=== PATIENT | female | born 1975 | race African-American/Black ===

== ENCOUNTER 2020-04-15 09:29 | Emergency (ER) | payer SELFPAY ==
--- NOTE | ~2020-04-15 | US_ITS ---
US pelvic complete w TV DATE: 04/15/2020 15:29 INDICATION: Right lower abdominal and pelvic pain TECHNIQUE: Real time imaging via transabdominal and transvaginal approaches COMPARISON: None FINDINGS: The uterus measures approximately 6.8 cm height and up to 3.7 cm AP dimension. The central endometrial echo complex measures 6 mm AP dimension. There is an approximately 1.5 x 2.2 cm right ovarian cyst. The ovaries are otherwise unremarkable. Normal vascular flow to both ovaries. No pelvic mass is noted . No abnormal pelvic free fluid collection. IMPRESSION: 1.5 x 2.2 cm right ovarian cyst Reviewed, dictated and finalized at [facility]. Reviewed, dictated and finalized at [facility].
--- NOTE | ~2020-04-15 | CT_ITS ---
EXAMINATION: CT abdomen pelvis w con DATE: 04/15/2020 11:07 INDICATION: Lower abdominal pain, nausea and vomiting TECHNIQUE: Computed tomography (CT) of the abdomen and pelvis was performed with 100 mL Omnipaque-350 intravenous contrast. Automated exposure control and iterative reconstruction technique were employe d. The dose-length product was 380.23 mGy-cm. COMPARISON: 11/03/2019 FINDINGS: Minimal bibasilar atelectasis. Heart size is normal. No pericardial or pleural effusion. Small slidin g-type hiatal hernia. 1 cm hepatic cyst. Focal hepatic steatosis at the ligamentum teres. Gallbladder , spleen, pancreas, left kidney and bilateral adrenal glands are normal. Mild to moderate right renal atrophy small regions of cortical scarring likely sequela of prior infection or infarction. There ar e also several fluid attenuation right renal cysts the largest measuring 2.7 cm. Bowels including the appendix are normal. There is subtle haziness to the fat along the dome of the bladder which could b e seen with cystitis. Unchanged small 6 mm enhancing myometrial focus at the left side of the uterine body consistent with small fibroid. 1.9 cm right adnexal cyst. Left adnexa is unremarkable. Small am ount of likely physiologic free fluid in the cul-de-sac. No abscess or free intraperitoneal gas.. No pathologically enlarged abdominal or pelvic lymphadenopathy. IMPRESSION: 1. Subtle haziness to the fat surrounding the bladder which could be seen with cystitis. Correlate wi urinalysis. 2. Unchanged subcentimeter likely uterine fibroid at the left side of the uterine body. Reviewed, dictated and finalized at location [facility]. IMPRESSION: 1. Subtle haziness to the fat surrounding the bladder which could be seen with cystitis. Correlate with urinalysis. 2. Unchanged subcentimeter likely uterine fibroid at the left side of the uteri ne body.
[2020-04-15 09:39] VITALS: BP 131/81; PULSE 56; RESP 16; TEMP 36.4; O2SAT 98
[2020-04-15 10:09] LABS: Basophils Percent Auto 0.2 % (0.2-1.2); Eosinophils Percent Auto 0.1 % (0-4.4); Hematocrit 33.4 % (37.0-47.0); Hemoglobin 10.1 g/dL (12.0-15.0); Immature Granulocyte Absolute 0.02 K/mm3 (0.00-0.031); Immature Granulocyte Percent A 0.2 % (0-0.5); Lymphocytes Absolute Auto 0.98 K/mm3 (0.9-3.2); Lymphocytes Percent Auto 11.3 % (18.3-44.2); Mean Corpuscular HGB Conc 30.2 g/dl (32-36); Mean Corpuscular Hemoglobin 24.4 pg (26-34); Mean Corpuscular Volume 80.7 fl (80-100); Mean Platelet Volume 11.6 fl (7.4-10.4); Monocytes Absolute Auto 0.2 K/mm3 (0.1-0.6); Monocytes Percent Auto 2.1 % (2.6-8.5); Neutrophils Absolute Auto 7.4 K/mm3 (1.3-6.7); Neutrophils Percent Auto 86.1 % (45.5-73.1); Platelet Count Result 250 k/mm3 (150-375); Red Blood Count 4.14 M/mm3 (4.2-5.4); Red Cell Distribution Width 18.7 % (11.5-14.5); White Blood Count 8.6 K/mm3 (4.5-10.0)
[2020-04-15 10:22] LABS: Potassium 3.8 mmol/L (3.4-5.0)
--- NOTE | 2020-04-15 10:28 | ED.NAVMDI ---
HPI - Nausea/Vomiting/Diarrhea General Chief complaint: Nausea/Vomiting/Diarrhea Stated complaint: Vomiting Time Seen by Provider: 04/15/20 10:13 Source: patient Mode of arrival: ambulatory Limitations: no limitations History of Present Illness HPI Narrative: This is a 44 year old female that presents to the ER for abdominal pain since this morning. Reports crampy, lower abdominal pain. Reports diarrhea. Reports she saw blood in stool. Also reports nausea and vomiting. Reports history of celiac disease. Sees a GI doctor, but has not seen him in some time. Reports a heavy menstrual cycle that started last week. Denies fever, dysuria, or hematuria. Related Data Home Medications Medication Instructions Recorded Confirmed cetirizine [Zyrtec] 10 mg PO DAILY 04/15/20 omeprazole 20 mg PO DAILY 04/15/20 Allergies Allergy/AdvReac Type Severity Reaction Status Date / Time latex Allergy Hives Verified 04/15/20 09:43 Review of Systems Review of Systems: Narrative: CONSTITUTIONAL: Denies fever GASTROINTESTINAL: Reports abdominal pain, nausea, vomiting, and diarrhea. GENITOURINARY: Denies dysuria or hematuria. All systems reviewed & are unremarkable except as noted in HPI and below PMFSH Past Medical History Medical History (Updated 04/15/20 @ 16:10 by Shahla Patel PA-C) Celiac disease H. pylori infection Surgical History Surgical History (Updated 04/15/20 @ 10:34 by Shahla Patel PA-C) History of section Social History Social History (Updated 11/03/19 @ 13:45 by Hilda Garduno) Smoking status: Never smoker Exam Narrative: Exam Narrative: GENERAL: Well-appearing, well-nourished, and in mild acute distress due to pain. HEAD: Normocephalic, atraumatic. EYES: EOMI. CHEST: Clear to auscultation. No respiratory distress. No wheezes rales or rhonchi HEART: Regular rate and rhythm. No murmur heard. Normal peripheral pulses. ABDOMEN: Soft, nondistended, normal active bowel sounds. Tender to palpation throughout the lower abdomen, without guarding EXTREMITIES: Normal range of motion. No edema. SKIN: Warm, dry, no rash. NEURO: No focal deficits. Alert and oriented x3. PSYCH: Normal mood and affect RECTAL: Hemoccult negative. External hemorrhoid present, nonthrombosed Course Vital Signs Vital signs: Vital Signs Temperature 97.6 F 04/15/20 09:39 Pulse Rate 56 L 04/15/20 09:39 Respiratory Rate 16 04/15/20 09:39 Blood Pressure 131/81 04/15/20 09:39 Pulse Oximetry 98 04/15/20 09:39 Temperature 97.6 F 04/15/20 09:39 Pulse Rate 83 04/15/20 14:01 Respiratory Rate 16 04/15/20 09:39 Blood Pressure 116/88 04/15/20 14:01 Pulse Oximetry 98 04/15/20 09:39 MDM - Nausea/Vomiting/Diarrhea MDM Narrative Medical decision making narrative: Patient presents the emergency department for abdominal discomfort, nausea and vomiting. Also reported some diarrhea and blood in stool. Patient has history of celiac disease. She did have a external hemorrhoid. She is afebrile and nontoxic-appearing. CBC is without leukocytosis. Shows normocytic anemia with hemoglobin of 10.1. Metabolic panel without concerning findings. Lipase is not elevated. UA without evidence of infection. Lactic acid is not elevated. CT scan of the abdomen and pelvis shows subtle haziness of the fat surrounding the bladder which could be cystitis. Correlate with UA. UA was not concerning for infection. Patient also has a uterine fibroid. Pelvic ultrasound shows a 1.5 x 2.2 cm right ovarian cyst. Normal vascular flow to the ovaries. Patient reports relief with pain medication and antiemetic. Patient is stable and felt appropriate for further outpatient evaluation. She was given warnings to return to the ER Lab Data Attestation: I reviewed the patient's lab results. Result diagrams: 04/15/20 09:50 04/15/20 09:50 Labs: Lab Results 04/15/20 04/15/20 04/15/20 Ran
[2020-04-15 10:40] LABS: Alanine Aminotransferase 28 U/L (4-35); Albumin Level 4.4 g/dL (3.5-5.1); Alkaline Phosphatase 126 U/L (38-126); Aspartate Amino Transferase 36 U/L (14-36); Bilirubin,Total 0.2 mg/dL (0.2-1.3); Blood Urea Nitrogen 6 mg/dL (7-17); Carbon Dioxide 24 mmol/L (22-30); Chloride 104 mmol/L (98-107); Estimated Glomerular Filt Rate > 60; Glucose 132 mg/dL (65-105); Lipase 48 U/L (23-300); Sodium 136 mmol/L (137-145)
[2020-04-15] MEDS: MORPHINE SULFATE 4 MG/ML INJ IV PUSH (10:40)
[2020-04-15] MEDS: SODIUM CHLORIDE 0.9% IV 1,000 ML 999 ML IV CONT (10:40)
[2020-04-15] MEDS: ONDANSETRON INJ 4 MG/2 ML VIAL IV PUSH (10:40)
[2020-04-15 10:41] LABS: Add Urine Microscopic? YES; Appearance Urine Clear (Clear); Bacteria Urine Trace /hpf; Bilirubin Urine Negative (Negative); Blood Urine Negative (Negative); Color Urine Straw (Yellow); Glucose Urine UA Negative (Negative); Ketones Urine Trace mg/dL (Negative); Leukocyte Esterase Ur Negative LEU/UL (Negative); Mucus Urine Rare /lpf; Nitrate Urine Negative (Negative); Protein Urine 1+ mg/dL (Negative); Specific Grav Ur 1.015 (1.001-1.035); Squamous Epithelial Cell Urine Few /hpf (Few); Urobilinogen Urine Negative mg/dL (<2.0); WBC Urine 0-3 /hpf
[2020-04-15 11:59] LABS: Lactic Acid Reflex 1.3 mmol/L (0.7-2.1)
[2020-04-15 13:57] VITALS: BP 98/68; PULSE 67
[2020-04-15 13:59] VITALS: BP 104/78; PULSE 75
[2020-04-15 14:01] VITALS: BP 116/88; PULSE 83
[2020-04-15 16:27] VITALS: BP 108/74; PULSE 62; RESP 16
== END 2020-04-15 16:27 | disposition home or self-care (01) ==
PROVIDERS: Physician Assistant; Emergency Provider Emergency Medicine; PCP Family Medicine
DX: N83.201 Unspecified ovarian cyst, right side (principal); K90.0 Celiac disease; R93.41 Abnormal radiologic findings on diagnostic imaging of renal pelvis, ureter, or bladder; R93.89 Abnormal findings on diagnostic imaging of other specified body structures
CPT/HCPCS: 36415; 74177; 76830; 76856; 80053; 81001; 81025; 83605; 83690; 85025; 96361; 96374; 96375; 99284; J0131; J2270; J2405; J7030; Q9967

== ENCOUNTER 2020-09-09 02:19 | Emergency (ER) | payer OTHER, SELFPAY ==
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
[2020-09-09 02:24] VITALS: BP 117/83; PULSE 90; RESP 16; TEMP 36.7; O2SAT 99
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
[2020-09-09 04:47] VITALS: BP 114/82; PULSE 77; RESP 18; O2SAT 100
== END 2020-09-09 04:48 | disposition home or self-care (01) ==
PROVIDERS: Emergency Provider Emergency Medicine; PCP Family Medicine
DX: S16.1XXA Strain of muscle, fascia and tendon at neck level, initial encounter (principal); S29.012A Strain of muscle and tendon of back wall of thorax, initial encounter; T14.8XXA Other injury of unspecified body region, initial encounter; K90.0 Celiac disease; V49.40XA Driver injured in collision with unspecified motor vehicles in traffic accident, initial encounter; M50.30 Other cervical disc degeneration, unspecified cervical region
CPT/HCPCS: 72040; 72070; 73502; 99284

== ENCOUNTER 2021-02-09 12:28 | Inpatient (IN) | payer OTHER, SELFPAY ==
--- NOTE | ~2021-02-09 | CT_ITS ---
EXAMINATION: CT abdomen pelvis w con DATE: 02/09/2021 15:52 INDICATION: Generalized abdominal pain. Nausea, vomiting and diarrhea. TECHNIQUE: Computed tomography (CT) of the abdomen and pelvis was performed with 100 mL Omnipaque-350 intravenous contrast. Automated exposure control and iterative reconstruction technique were employe d. The dose-length product was 258.67 mGy-cm. COMPARISON: 04/15/2020 FINDINGS: Lung bases are clear. Heart size is normal. No pericardial or pleural effusion. 10 mm hepatic cyst. F ocal hepatic steatosis along the ligamentum teres. Gallbladder, spleen, pancreas and bilateral adrena l glands are normal. Asymmetric mild right renal atrophy with regions of chronic cortical scarring at the upper pole. There are several right renal cysts, the largest measuring 3.0 cm. There is diffuse edematous wall thickening of the colon consistent with colitis. Appendix is normal. There is a small bowel intussusception extending for approximately 2.5 cm along a segment of ileum in the right abdome n. This is likely transient with no bowel obstruction. No evident lead mass. There is diffuse wall th ickening of the bladder. Anteverted uterus and bilateral adnexa are unremarkable. Minimal free fluid in the pelvis which could be reactive or physiologic. No pathologically enlarged abdominal or pelvic lymphadenopathy. Mild thoracic spondylosis. IMPRESSION: 1. Pancolitis most likely infectious or inflammatory in etiology. 2. Likely transient short segment of small bowel intussusception in the right abdomen with no evident lead mass or obstruction. 3. Diffuse mild bladder wall thickening which could be due to incomplete distention or cystitis eithe r acute or chronic. Correlate with urinalysis. Reviewed, dictated and finalized at location A. IMPRESSION: 1. Pancolitis most likely infectious or inflammatory in etiology. 2. Likely transient short segment of small bowel intussusception in the right a bdomen with no evident lead mass or obstruction. 3. Diffuse mild bladder wall thickening which could be due to incomplete disten tion or cystitis either acute or chronic. Correlate with urinalysis.
[2021-02-09 12:45] VITALS: BP 167/102; PULSE 54; RESP 20; TEMP 36.3; O2SAT 100
[2021-02-09 13:11] LABS: Basophils Percent Auto 0.2 % (0.2-1.2); Eosinophils Percent Auto 0.1 % (0-4.4); Hematocrit 36.6 % (37.0-47.0); Hemoglobin 11.3 g/dL (12.0-15.0); Immature Granulocyte Absolute 0.03 K/mm3 (0.00-0.031); Immature Granulocyte Percent A 0.3 % (0-0.5); Lymphocytes Absolute Auto 0.77 K/mm3 (0.9-3.2); Lymphocytes Percent Auto 7.3 % (18.3-44.2); Mean Corpuscular HGB Conc 30.9 g/dl (32-36); Mean Corpuscular Hemoglobin 26.1 pg (26-34); Mean Corpuscular Volume 84.5 fl (80-100); Mean Platelet Volume 12.5 fl (7.4-10.4); Monocytes Absolute Auto 0.2 K/mm3 (0.1-0.6); Monocytes Percent Auto 2.2 % (2.6-8.5); Neutrophils Absolute Auto 9.4 K/mm3 (1.3-6.7); Neutrophils Percent Auto 89.9 % (45.5-73.1); Platelet Count Result 197 k/mm3 (150-375); Red Blood Count 4.33 M/mm3 (4.2-5.4); Red Cell Distribution Width 16.6 % (11.5-14.5); White Blood Count 10.5 K/mm3 (4.5-10.0)
[2021-02-09 13:23] LABS: Alanine Aminotransferase 36 U/L (4-35); Albumin Level 4.5 g/dL (3.5-5.1); Alkaline Phosphatase 114 U/L (38-126); Anion Gap 6 mmol/L (8-16); Aspartate Amino Transferase 48 U/L (14-36); Bilirubin,Total 0.4 mg/dL (0.2-1.3); Blood Urea Nitrogen 6 mg/dL (7-17); Carbon Dioxide 24 mmol/L (22-30); Chloride 108 mmol/L (98-107); Estimated CRCL calculation 98 ml/min; Estimated Glomerular Filt Rate > 60; Glucose 121 mg/dL (65-105); Lipase 32 U/L (23-300); Potassium 4.3 mmol/L (3.4-5.0); Sodium 138 mmol/L (137-145)
--- NOTE | 2021-02-09 13:48 | PC.NURSE ---
Pt refusing to give urine sample at this time
--- NOTE | 2021-02-09 14:11 | ED.GENADULT ---
HPI - General Adult General Chief complaint: Nausea/Vomiting/Diarrhea Stated complaint: weakness, n/v Time Seen by Provider: 02/09/21 13:37 Source: patient, EMS and RN notes reviewed Limitations: no limitations History of Present Illness HPI narrative: Patient is 45 years old -[place] Citizen female came to the emergency room from home with generalized weakness and nausea started 2 hours prior to arrival to the emergency room. Patient denies any fever, chills, abdominal pain, back pain, chest pain, shortness of breath, headache. Patient reports a lot of stress lately. History of depression and anemia. Patient smokes, drinks occasionally and uses marijuana occasionally. Currently her main complaint is nausea Related Data Home Medications Medication Instructions Recorded Confirmed omeprazole 20 mg PO DAILY 04/15/20 metronidazole 500 mg PO DAILY 09/09/20 mirtazapine 30 mg PO DAILY 09/09/20 Allergies Allergy/AdvReac Type Severity Reaction Status Date / Time latex Allergy Hives Verified 02/09/21 15:39 Review of Systems Review of Systems: Narrative: CONSTITUTIONAL: Denies fever, chills, or sweats. EYES: Denies visual changes, redness, or discharge. ENT: Denies rhinorrhea, congestion, sore throat, or otalgia. CARDIOVASCULAR: Denies chest pain, palpitations, or edema. RESPIRATORY: Denies cough or dyspnea. GASTROINTESTINAL: Denies abdominal pain, nausea, vomiting, or diarrhea. GENITOURINARY: Denies dysuria or hematuria. SKIN: Denies rash or itching. MUSCULOSKELETAL: Denies back pain, joint pain, or myalgia. NEUROLOGIC: Denies headache, numbness, or weakness. PSYCHIATRIC: Denies anxiety or depression. PMFSH Past Medical History Medical History Celiac disease H. pylori infection Surgical History Surgical History History of section Social History Social History Smoking status: Never smoker Gender identity (if verbalized by the patient): Female Exam Narrative: Exam Narrative: General appearance: Well-developed, well-nourished Skin: Normal color Head: Normocephalic, nontraumatic Eyes: Clear conjunctiva ENT: Oropharynx normal, ears normal, nose normal Neck: Supple, nontender Chest and respiratory: Airway patent, no respiratory distress, no accessory muscle use Heart: Regular rate/rhythm Abdomen: Soft, nontender, no organomegaly, quiet bowel sounds Vascular: Normal peripheral pulses, normal capillary refill. 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 PAGE Date: 02/09/21 Time: 18:21 Vital Signs Vital signs: Vital Signs Temperature 36.3 C L 02/09/21 12:45 Pulse Rate 54 L 02/09/21 12:45 Respiratory Rate 20 02/09/21 12:45 Blood Pressure 167/102 H 02/09/21 12:45 Pulse Oximetry 100 02/09/21 12:45 Temperature 36.3 C L 02/09/21 12:45 Pulse Rate 61 02/09/21 15:32 Respiratory Rate 20 02/09/21 12:45 Blood Pressure 155/90 H 02/09/21 15:32 Pulse Oximetry 100 02/09/21 15:32 Medical Decision Making [facility] Narrative Medical decision making narrative: Anxiety-like symptoms is my concern. Labs, CT abdomen pelvis, IV fluid, IV Reglan and Benadryl ordered. Further plan to follow Differential D
--- NOTE | 2021-02-09 14:45 | PC.NURSE ---
Pt still refusing to give urine sample at this time
[2021-02-09] MEDS: diphenhydrAMINE HCl INJ 50 MG/ML VIAL IV PUSH (14:47)
[2021-02-09] MEDS: SODIUM CHLORIDE 0.9% IV 1,000 ML 999 ML IV CONT (14:47)
[2021-02-09] MEDS: METOCLOPRAMIDE HCL INJ 10 MG/2 ML VIAL IV PUSH (14:47)
[2021-02-09 15:32] VITALS: BP 155/90; PULSE 61; O2SAT 100
[2021-02-09 15:38] LABS: Add Urine Microscopic? YES; Appearance Urine Clear (Clear); Bacteria Urine Trace /hpf; Bilirubin Urine Negative (Negative); Blood Urine Negative (Negative); Color Urine Yellow (Yellow); Glucose Urine UA Negative (Negative); Ketones Urine Trace mg/dL (Negative); Leukocyte Esterase Ur Negative LEU/UL (Negative); Mucus Urine Rare /lpf; Nitrate Urine Negative (Negative); Protein Urine 1+ mg/dL (Negative); RBC Urine 0-2 /hpf (0-2); Specific Grav Ur 1.017 (1.001-1.035); Squamous Epithelial Cell Urine Rare /hpf (Few); Urobilinogen Urine Negative mg/dL (<2.0); WBC Urine 0-3 /hpf
[2021-02-09] MEDS: LORazepam INJ (*CRX) 2 MG/ML VIAL 1 MG IV PUSH (16:02)
[2021-02-09 17:41] VITALS: BP 133/87; PULSE 61; RESP 18; O2SAT 100
[2021-02-09] MEDS: metroNIDAZOLE 500 MG/ISO 100ML 500 MG/100 ML BAG 100 MG IVPB (17:41)
[2021-02-09 18:45] VITALS: BP 132/77; PULSE 70; RESP 16; TEMP 36.4; O2SAT 100
[2021-02-09 18:49] VITALS: BMI 21.6
[2021-02-09] MEDS: SODIUM CHLORIDE 0.9% IV 1,000 ML 125 ML IV CONT (20:43)
--- NOTE | 2021-02-09 21:45 | PM.IMHP ---
H&P: HPI History of Present Illness Date/Time: 02/09/21 21:45 Chief Complaint: Nausea, vomiting, diarrhea. Narrative: This is a pleasant 45-year-old female with celiac disease and GERD who presented to the emergency department earlier today via EMS from home for evaluation of nausea, vomiting, and diarrhea that started several hours prior to arrival. Her symptoms started suddenly and she has had numerous episodes of emesis and proximally for loose stools since the onset. Additionally she has had some mild abdominal bloating with belching and flatus. CT of the abdomen and pelvis showed pancolitis and likely transient short segment of small bowel intussusception in the right abdomen. She is feeling much better after receiving antiemetics and IV fluids and has no specific complaints at this time. She denies fever, chills, sweats, hematemesis, melena, hematochezia, and current abdominal pain. No dysuria, urinary hesitancy, urgency, or frequency. She states compliance with her celiac diet and has not had any recent antibiotics. She also denies recent travel and sick contacts. No personal or family history of inflammatory bowel disease. Review of Systems Review of Systems: Narrative: Twelve systems were reviewed with pertinent positives and negatives as per HPI. Weight has remained stable. She has a history of endoscopy but has never had a colonoscopy. Rare indigestion. Except as documented, all other systems were reviewed and are negative. [facility] Past Medical History Medical History (Updated 02/10/21 @ 00:35 by Yolanda Espinal PA-C) Anemia Asthma Celiac disease Depression with anxiety Gastroesophageal reflux disease H. pylori infection Nicotine use Surgical History Surgical History (Updated 02/10/21 @ 00:32 by Yolanda Espinal PA-C) History of section X3 Family History Family History Father Heart disease Mother Heart disease Diabetes mellitus Hyperlipemia Hypertension Social History Social History (Updated 02/10/21 @ 00:33 by Yolanda Espinal PA-C) Social History: Surrogate decision maker: Kamaljit Terence (friend) and Germán Hanson (daughter). Code status: Full code. Smoking status: Current some day smoker Tobacco type: cigars Alcohol intake: current Drinks per week: 1 Substance use: current Substance use type: marijuana Last use: 02/08/2021 Additional living arrangements comments: Resides in [place] with a friend. Additional occupation/education comments: Not currently employed. Gender identity (if verbalized by the patient): Female Spiritual care concerns: No Meds Home Medications and Allergies Home Medications Medication Instructions Recorded Confirmed Type omeprazole 20 mg PO DAILY 04/15/20 02/09/21 History ibuprofen 800 mg PO TID PRN #21 tablet 09/09/20 02/09/21 Rx mirtazapine 45 mg PO DAILY 09/09/20 02/09/21 History albuterol sulfate [Ventolin HFA] 2 puff INHALATION QID PRN 02/09/21 02/09/21 History ferrous sulfate 325 mg PO BID 02/09/21 02/09/21 History Allergies Allergy/AdvReac Type Severity Reaction Status Date / Time latex Allergy Hives Verified 02/09/21 15:39 Vital Signs Vital Signs - 24 hr 02/09/21 12:45 02/09/21 15:32 02/09/21 17:41 Temperature 97.3 F L Pulse Rate 54 L 61 61 Respiratory Rate 20 18 Blood Pressure 167/102 H 155/90 H 133/87 Pulse Oximetry 100 100 100 02/09/21 18:45 02/09/21 22:00 Temperature 97.6 F 97 F L Pulse Rate 70 88 Respiratory Rate 16 18 Blood Pressure 132/77 113/70 Pulse Oximetry 100 100 Exam Narrative: Exam Narrative: General: Well-developed female supine in bed in no distress. Weight: 62.7 kilograms. BMI: 21.6. HEENT: Normocephalic, atraumatic. PERRL, EOMI. Sclerae anicteric. Oral mucosa moist. Neck: Supple. Respiratory: Lungs are clear to auscultation bilaterally. Cardiovascular: Regular rate and rhy
[2021-02-09 22:00] VITALS: BP 113/70; PULSE 88; RESP 18; TEMP 36.1; O2SAT 100
[2021-02-10] VITALS (7 sets, daily range): BP systolic 101–162; BP diastolic 55–99; PULSE 62–95; RESP 16–20; TEMP 36.4–37.2; O2SAT 99–100
[2021-02-10] MEDS: metroNIDAZOLE 500 MG/ISO 100ML 500 MG/100 ML BAG 100 MG IVPB ×4 (00:27→20:12)
[2021-02-10] MEDS: SODIUM CHLORIDE 0.9% IV 1,000 ML 125 ML IV CONT ×2 (06:07→20:11)
[2021-02-10 06:21] LABS: Basophils Percent Auto 0.2 % (0.2-1.2); Eosinophils Absolute Auto 0.1 K/mm3 (0-0.3); Eosinophils Percent Auto 1.2 % (0-4.4); Hematocrit 31.3 % (37.0-47.0); Hemoglobin 9.6 g/dL (12.0-15.0); Immature Granulocyte Absolute 0.02 K/mm3 (0.00-0.031); Immature Granulocyte Percent A 0.4 % (0-0.5); Lymphocytes Absolute Auto 1.79 K/mm3 (0.9-3.2); Lymphocytes Percent Auto 31.7 % (18.3-44.2); Mean Corpuscular HGB Conc 30.7 g/dl (32-36); Mean Corpuscular Hemoglobin 25.6 pg (26-34); Mean Corpuscular Volume 83.5 fl (80-100); Monocytes Absolute Auto 0.5 K/mm3 (0.1-0.6); Monocytes Percent Auto 9.6 % (2.6-8.5); Neutrophils Absolute Auto 3.2 K/mm3 (1.3-6.7); Neutrophils Percent Auto 56.9 % (45.5-73.1); Platelet Count Result 165 k/mm3 (150-375); Red Blood Count 3.75 M/mm3 (4.2-5.4); Red Cell Distribution Width 16.5 % (11.5-14.5); White Blood Count 5.6 K/mm3 (4.5-10.0)
[2021-02-10 06:30] LABS: Anion Gap 2 mmol/L (8-16); Blood Urea Nitrogen 5 mg/dL (7-17); Calcium 8.6 mg/dL (8.4-10.2); Carbon Dioxide 26 mmol/L (22-30); Chloride 110 mmol/L (98-107); Estimated CRCL calculation 85 ml/min; Estimated Glomerular Filt Rate > 60; Glucose 88 mg/dL (65-105); Potassium 3.5 mmol/L (3.4-5.0); Sodium 138 mmol/L (137-145)
[2021-02-10 07:34] LABS: Platelet Estimate Adequate (Adequate); Poikilocytosis 1+ (NORMAL)
[2021-02-10] MEDS: PANTOPRAZOLE SOD SESQUIHYDRATE 20 MG TAB PO (08:04)
[2021-02-10] MEDS: FERROUS SULFATE 324 MG TABLET PO (08:04)
--- NOTE | 2021-02-10 08:07 | PM.CNGS ---
Assessment and Plan Assessment and plan (1) Pancolitis: Code(s): K51.00 - Ulcerative (chronic) pancolitis without complications Status: Acute Assessment and Plan: benign exam this am, demetrius clears, would ADAT, cont abx, await stool studies, will need further workup c GI likely as outpt c scope (2) Intussusception: Code(s): K56.1 - Intussusception Status: Acute Assessment and Plan: likely incidental finding on CT, exam benign (3) Gastroesophageal reflux disease: Code(s): K21.9 - Gastro-esophageal reflux disease without esophagitis Status: Acute Assessment and Plan: cont home meds (4) Celiac disease: Code(s): K90.0 - Celiac disease Status: Acute Assessment and Plan: cont home regimen History of Present Illness Consult details Consult date: 02/10/21 Reason for consult: abdominal pain Requesting physician: Yolanda Espinal PA-C Narrative: Pt is a 45 y/o F presenting to ED yesterday c/o severe, crampy abdominal pain assoc c N/V, diarrhea. Pt reports sx started acutely yesterday and lasted for hours. Pt has h/o celiac dz but reports her sx seem unrelated as pain was much more severe in nature. Pt has not had any further diarrhea since admission. Pt denies any further N/V and reports abd pain largely resolved. Pt is now demetrius clear liquids. Pt reports she has been very stressed lately and has been going through a lot in her personal life. Review of Systems Constitutional: Constitutional: Reports anorexia, Denies chills, Reports fatigue, Denies fever(s), Reports lethargy, Reports poor appetite, Reports weakness, Denies weight gain and Reports weight loss Eyes: Eyes: Reports no additional eye complaints ENT: Reports system reviewed and no additional complaints, except as documented Cardiovascular: Cardiovascular: Reports no additional cardiovascular complaints Respiratory: Respiratory: Reports no additional respiratory complaints Gastrointestinal: Gastrointestinal: Reports as per HPI Genitourinary: Genitourinary: Reports no additional female genitourinary complaints Musculoskeletal: Musculoskeletal: Reports no additional musculoskeletal complaints Integumentary/Breasts: Skin/Breast: Reports system reviewed and no additional complaints, except as docu Neurologic: Reports system reviewed and no additional complaints, except as documented Psychiatric: Psychiatric: Reports no additional psychiatric complaints Endocrine: Endocrine: Reports no additional endocrine complaints Hematologic/Lymphatic: Hematologic/Lymphatic: Reports no additional hematologic/lymphatic complaints Allergic/Immunologic: Allergic/Immunologic: Reports no additional allergic/immunologic complaints [facility] Past Medical History Medical History Anemia Asthma Celiac disease Depression with anxiety Gastroesophageal reflux disease H. pylori infection Nicotine use Surgical History Surgical History History of section X3 Family History Family History Father Heart disease Mother Heart disease Diabetes mellitus Hyperlipemia Hypertension Social History Social History Social History: Surrogate decision maker: Kamaljit Pratt (friend) and Germán Hanson (daughter). Code status: Full code. Smoking status: Current some day smoker Tobacco type: cigars Alcohol intake: current Drinks per week: 1 Substance use: current Substance use type: marijuana Last use: 02/08/2021 Additional living arrangements comments: Resides in [place] with a friend. Additional occupation/education comments: Not currently employed. Gender identity (if verbalized by the patient): Female Spiritual care concerns: No Meds Home Medications a
--- NOTE | 2021-02-10 08:23 | PM.IMPN ---
Progress Note: A&P Assessment and Plan (1) Pancolitis: Code(s): K51.00 - Ulcerative (chronic) pancolitis without complications Status: Acute Assessment and Plan: Evident on CT findings. Most likely infectious etiology, although inflammatory colitis cannot be excluded. Stool cultures pending Continue IV Levaquin and Flagyl, started on 02/09/2021 GI has been consulted general surgery recommendations. Input is appreciated. Continue gentle IV fluid hydration. Plan to discontinue fluids when tolerating diet. Full liquid diet. Advanced diet as tolerated, per surgery recommendations Analgesics and antiemetics available as needed (2) Intussusception: Code(s): K56.1 - Intussusception Status: Acute Assessment and Plan: CT showed likely transient short segment of small bowel intussusception in the right abdomen without evidence of lead, mass, or obstruction. Suspect this has resolved as she denies abdominal pain and abdomen is soft and nontender on exam Appreciate general surgery recommendations Monitor serial abdominal exams (3) Celiac disease: Code(s): K90.0 - Celiac disease Status: Acute Assessment and Plan: She reports no issues Strict gluten free diet (4) Anemia: Code(s): D64.9 - Anemia, unspecified Status: Acute Assessment and Plan: Chronic. Suspect iron deficiency anemia as patient is on oral iron supplementation. Stable on review of prior labs. Monitor H&H closely. Transfuse as needed with hemoglobin threshold <7.0 Continue ferrous sulfate (5) Gastroesophageal reflux disease: Code(s): K21.9 - Gastro-esophageal reflux disease without esophagitis Status: Acute Assessment and Plan: Reports very mild GERD symptoms at this time. Continue Protonix daily Subjective Date/time seen: 02/10/21 08:23 Interval history: Date of service: 02/11/2020 Susan Hanson is a 45-year-old female with history of celiac disease, GERD, and tobacco abuse who is seen in follow-up for colitis. She is feeling better today. She has not had any episodes of emesis and no longer feels nauseous. She was having diarrhea yesterday but has not had any stools today. She denies abdominal pain. She does report some GERD symptoms at this time. She is passing flatus. She is tolerating clear liquids. She denies shortness breath, cough, chest pain, dizziness, lightheadedness, or weakness. Denies urinary symptoms. Review of Systems Review of Systems: All systems reviewed & are unremarkable except as noted in HPI and below Exam Narrative: Exam Narrative: Ms. Hanson is a well-nourished, well-appearing 45-year-old female who is lying supine in bed. She appears comfortable and is in NARD. Neuro: awake, alert and oriented x4, speech clear, no focal neuro deficits noted HEENMT: normocephalic, atraumatic, EOMI, sclerae anicteric, moist oral mucosa, tongue midline, nares patent Neck: supple, no lymphadenopathy Respiratory: clear to auscultation bilaterally, nonlabored breathing Cardio: regular rate, regular rhythm with S1-S2 Abdomen: nondistended, normoactive bowel sounds, soft, nontender to palpation, no rigidity or guarding Extremities: no edema, erythema, cyanosis, clubbing, or tenderness to palpation, DP pulses 2+ bilaterally Skin: no rashes or lesions, warm and dry Psych: appropriate mood and affect, judgment and insight intact Objective Data Vital Signs Vital Signs: Vital Signs - 24 hr 02/09/21 12:45 02/09/21 15:32 02/09/21 17:41 Temperature 97.3 F L Pulse Rate 54 L 61 61 Respiratory Rate 20 18 Blood Pressure 167/102 H 155/90 H 133/87 Pulse Oximetry 100 100 100 02/09/21 18:45 02/09/21 22:00 02/10/21 06:00 Temperature 97.6 F 97 F L 97.6 F Pulse Rate 70 88 79 Respiratory Rate 16 18 18 Blood Pressure 132/77 113/70 113/66 Pulse Oximetry 100 100 100 Intake/Output Intake/Output: Intake & Output
[2021-02-10] MEDS: ONDANSETRON INJ 4 MG/2 ML VIAL IV PUSH (09:22)
[2021-02-10] MEDS: HYDROcodone/acetaminophen (*CRX) 5-325 MG TABLET 1 TAB PO (15:51)
[2021-02-10] MEDS: LORazepam INJ (*CRX) 2 MG/ML VIAL 0.5 MG IV PUSH (15:57)
[2021-02-10] MEDS: diphenhydrAMINE HCl INJ 50 MG/ML VIAL IV PUSH (16:23)
[2021-02-10] MEDS: MORPHINE SULFATE (*CRX) 2 MG/ML INJ IV PUSH (16:24)
[2021-02-10] MEDS: MIRTAZAPINE 15 MG TABLET 45 MG PO (20:11)
[2021-02-11] MEDS: metroNIDAZOLE 500 MG/ISO 100ML 500 MG/100 ML BAG 100 MG IVPB ×3 (02:17→12:08)
[2021-02-11 05:57] LABS: Hematocrit 30.8 % (37.0-47.0); Hemoglobin 9.4 g/dL (12.0-15.0)
[2021-02-11 06:00] VITALS: BP 123/71; PULSE 63; RESP 16; TEMP 36.4; O2SAT 100
[2021-02-11 06:09] LABS: Anion Gap 3 mmol/L (8-16); Blood Urea Nitrogen 5 mg/dL (7-17); Calcium 8.8 mg/dL (8.4-10.2); Carbon Dioxide 27 mmol/L (22-30); Chloride 109 mmol/L (98-107); Estimated CRCL calculation 75 ml/min; Estimated Glomerular Filt Rate > 60; Glucose 83 mg/dL (65-105); Potassium 3.2 mmol/L (3.4-5.0); Sodium 139 mmol/L (137-145)
[2021-02-11 08:00] VITALS: PULSE 63; RESP 16; O2SAT 100
--- NOTE | 2021-02-11 08:52 | PM.PNGS ---
Progress Note: A&P Assessment and Plan (1) Pancolitis: Code(s): K51.00 - Ulcerative (chronic) pancolitis without complications Status: Acute Assessment and Plan: exam benign, ADAT, cont abx, no acute surgical issues, await GI input, home soon if demetrius diet Subjective Subjective Date/Time Seen: 02/11/21 08:52 feels good this am, reports recurrent abd pain, N/V yest but now resolved, +bowel movt (normal) this am Review of Systems Review of Systems: All systems reviewed & are unremarkable except as noted in HPI and below Exam Const: General: cooperative, comfortable and no acute distress Orientation/consciousness: patient oriented x3 Resp: Auscultation: clear to auscultation bilaterally Cardio: Rate: regular rate Rhythm: regular rhythm GI: Inspection: normal to inspection and non-distended GI Palp: Yes Soft to palpation, No Tenderness to palpation present (GI) and No Guarding due to palpation present (GI) Auscultation: normal bowel sounds Other: soft, NT, ND Objective Data Vital Signs Vital Signs: Vital Signs - 24 hr 02/10/21 10:35 02/10/21 14:00 02/10/21 15:30 Temperature 36.6 C 36.7 C Pulse Rate 66 95 Respiratory Rate 18 20 Blood Pressure 146/55 H 161/99 H Pulse Oximetry 100 100 100 02/10/21 16:20 02/10/21 16:50 02/10/21 22:00 Temperature 36.6 C 37.2 C Pulse Rate 65 62 72 Respiratory Rate 16 16 18 Blood Pressure 162/87 H 144/83 H 101/59 L Pulse Oximetry 99 99 100 02/11/21 06:00 Temperature 36.4 C Pulse Rate 63 Respiratory Rate 16 Blood Pressure 123/71 Pulse Oximetry 100 Intake/Output Intake/Output: Intake & Output 02/08/21 02/09/21 02/10/21 02/11/21 23:59 23:59 23:59 23:59 Intake Total 1000 3280 400 Output Total 3200 Balance 1000 80 400 Meds/Results Medications: Active Medications Generic Name Dose Route Start Last Admin Trade Name Freq PRN Reason Stop Dose Admin Acetaminophen 650 mg 02/10/21 10:13 Acetaminophen 325 Mg Tablet PO Q4H PRN Mild pain 1-3 Hydrocodone Bitart/Acetaminophen 1 tab 02/10/21 10:13 02/10/21 15:51 Hydrocodone/Acetaminophen (*Crx) 5-325 Mg Tablet PO 1 tab Q6H PRN Administration Pain Rated 4-6 Albuterol 2 puff 02/10/21 00:38 Albuterol Sulfate (*Sp) Aerosol 1 Puff INHALATION QID PRN Shortness Of Breath Ferrous Sulfate 324 mg 02/10/21 08:00 02/10/21 17:00 Ferrous Sulfate 324 Mg Tablet PO Not Given BIDWM ANTONIA Sodium Chloride 1,000 mls @ 75 mls/hr 02/09/21 17:35 02/10/21 20:11 Normal Saline Iv IV CONT 125 mls/hr .[id number] ANTONIA Administration Metronidazole 500 mg in 100 mls @ 100 mls/hr 02/10/21 00:00 02/11/21 05:53 Flagyl 500 Mg/Iso Soln 100 Ml IVPB 100 mls/hr Q6HR ANTONIA Administration Levofloxacin/Dextrose 750 mg in 150 mls @ 100 mls/hr 02/10/21 18:00 02/10/21 19:38 Levaquin 750 Mg/D5w 150 Ml IVPB Infused Q24H ANTONIA Infusion Lorazepam 0.5 mg 02/10/21 16:06 Lorazepam (*Crx) 0.5 Mg Tablet PO Q6H PRN Anxiety Mirtazapine 45 mg 02/10/21 21:00 02/10/21 20:11 Mirtazapine 15 Mg Tablet PO 45 mg HS ANTONIA Administration Morphine Sulfate 2 mg 02/10/21 16:07 02/10/21 16:24 Morphine Sulfate (*Crx) 2 Mg/Ml Inj IV PUSH 2 mg Q4HR PRN Administration Pain Rated 7-10 Ondansetron HCl 4 mg 02/09/21 17:33 02/10/21 09:22 Ondansetron Inj 4 Mg/2 Ml Vial IV PUSH 4 mg Q4H PRN Administration Nausea Pantoprazole Sodium 20 mg 02/10/21 09:00 02/10/21 08:04 Pantoprazole Sod Sesquihydrate 20 Mg Tab PO 03/12/21 09:01 20 mg DAILY ANTONIA Administration Radiology Results: ITS Impressions Abdomen/Pelvis CT 02/09/21 16:02 IMPRESSION: 1. Pancolitis most likely infectious or inflammatory in etiology. 2. Likely transient short segment of small bowel intussusception in the right abdomen with no evident lead mass or obstruction. 3. Diffuse mild bladder wall thickening which could be due to incomplete distention
[2021-02-11] MEDS: POTASSIUM CHLORIDE 20 MEQ TABLET 40 MEQ PO (09:18)
[2021-02-11] MEDS: PANTOPRAZOLE SOD SESQUIHYDRATE 20 MG TAB PO (09:19)
[2021-02-11] MEDS: FERROUS SULFATE 324 MG TABLET PO (09:19)
--- NOTE | 2021-02-11 10:31 | PM.IMPN ---
Progress Note: A&P Assessment and Plan (1) Pancolitis: Code(s): K51.00 - Ulcerative (chronic) pancolitis without complications Status: Acute Assessment and Plan: Evident on CT findings. Most likely infectious etiology, although inflammatory colitis cannot be excluded. Stool cultures pending Continue IV Levaquin and Flagyl, started on 02/09/2021 GI has been consulted per general surgery recommendations. Input is appreciated. Continue gentle IV fluid hydration. Plan to discontinue fluids when tolerating diet. Clear liquid diet. Will advance diet slowly given severe pain yesterday Analgesics and antiemetics available as needed (2) Intussusception: Code(s): K56.1 - Intussusception Status: Acute Assessment and Plan: CT showed likely transient short segment of small bowel intussusception in the right abdomen without evidence of lead, mass, or obstruction. Suspect this has resolved as she denies abdominal pain and abdomen is soft and nontender on exam Appreciate general surgery recommendations Monitor serial abdominal exams (3) Celiac disease: Code(s): K90.0 - Celiac disease Status: Acute Assessment and Plan: She reports no issues Strict gluten free diet (4) Anemia: Code(s): D64.9 - Anemia, unspecified Status: Acute Assessment and Plan: Chronic. Suspect iron deficiency anemia as patient is on oral iron supplementation. Stable on review of prior labs. Monitor H&H closely. Transfuse as needed with hemoglobin threshold <7.0 Continue ferrous sulfate (5) Gastroesophageal reflux disease: Code(s): K21.9 - Gastro-esophageal reflux disease without esophagitis Status: Acute Assessment and Plan: Asymptomatic. Continue Protonix daily Subjective Date/time seen: 02/11/21 10:31 Interval history: Date of service: 02/11/2021 Susan Hanson is a 45-year-old female with history of celiac disease, GERD, and tobacco abuse who is seen in follow-up for colitis. She is feeling better today. Yesterday afternoon, she had an episode of severe abdominal pain which she rated as 10/10 also with extreme nausea. Her pain is resolved at this time. She denies any further episodes emesis today. No diarrhea. She states she has not had anything to eat or drink yet today. Denies GERD symptoms. She denies weakness, dizziness, lightheadedness, shortness of breath, chest pain. Review of Systems Review of Systems: All systems reviewed & are unremarkable except as noted in HPI and below Exam Narrative: Exam Narrative: Ms. Hanson is a well-nourished, well-appearing 45-year-old female who is lying supine in bed. She appears comfortable and is in NARD. Neuro: awake, alert and oriented x4, speech clear, no focal neuro deficits noted HEENMT: normocephalic, atraumatic, EOMI, sclerae anicteric, moist oral mucosa, tongue midline, nares patent Neck: supple, no lymphadenopathy Respiratory: clear to auscultation bilaterally, nonlabored breathing Cardio: regular rate, regular rhythm with S1-S2 Abdomen: nondistended, normoactive bowel sounds, soft, nontender to palpation, no rigidity or guarding Extremities: no edema, erythema, cyanosis, clubbing, or tenderness to palpation, DP pulses 2+ bilaterally Skin: no rashes or lesions, warm and dry Psych: appropriate mood and affect, judgment and insight intact Objective Data Vital Signs Vital Signs: Vital Signs - 24 hr 02/10/21 10:35 02/10/21 14:00 02/10/21 15:30 Temperature 97.9 F 98.0 F Pulse Rate 66 95 Respiratory Rate 18 20 Blood Pressure 146/55 H 161/99 H Pulse Oximetry 100 100 100 02/10/21 16:20 02/10/21 16:50 02/10/21 22:00 Temperature 97.8 F 98.9 F Pulse Rate 65 62 72 Respiratory Rate 16 16 18 Blood Pressure 162/87 H 144/83 H 101/59 L Pulse Oximetry 99 99 100 02/11/21 06:00 02/11/21 08:00 Temperature 97.6 F Pulse Rate 63 63 Respiratory Rate
[2021-02-11] MEDS: SODIUM CHLORIDE 0.9% IV 1,000 ML 125 ML IV CONT (12:08)
--- NOTE | 2021-02-11 12:11 | WPDGIPROGNO ---
Progress Note: A&P Additional Plan Increase diet Home to finish 7-10 d ABx po F/U Dr. Donnelly Full consult dictated #[id number] [facility] [phone] Subjective Date/time seen: 02/11/21 12:11 Objective Data Vital Signs Vital Signs: Vital Signs - 24 hr 02/10/21 14:00 02/10/21 15:30 02/10/21 16:20 Temperature 36.6 C 36.7 C 36.6 C Pulse Rate 66 95 65 Respiratory Rate 18 20 16 Blood Pressure 146/55 H 161/99 H 162/87 H Pulse Oximetry 100 100 99 02/10/21 16:50 02/10/21 22:00 02/11/21 06:00 Temperature 37.2 C 36.4 C Pulse Rate 62 72 63 Respiratory Rate 16 18 16 Blood Pressure 144/83 H 101/59 L 123/71 Pulse Oximetry 99 100 100 02/11/21 08:00 Temperature Pulse Rate 63 Respiratory Rate 16 Blood Pressure Pulse Oximetry 100 Intake/Output Intake/Output: Intake & Output 02/08/21 02/09/21 02/10/21 02/11/21 23:59 23:59 23:59 23:59 Intake Total 1000 3280 1500 Output Total 3200 Balance 1000 80 1500 Meds/Results Medications: Active Medications Generic Name Dose Route Start Last Admin Trade Name Freq PRN Reason Stop Dose Admin Acetaminophen 650 mg 02/10/21 10:13 Acetaminophen 325 Mg Tablet PO Q4H PRN Mild pain 1-3 Hydrocodone Bitart/Acetaminophen 1 tab 02/10/21 10:13 02/10/21 15:51 Hydrocodone/Acetaminophen (*Crx) 5-325 Mg Tablet PO 1 tab Q6H PRN Administration Pain Rated 4-6 Albuterol 2 puff 02/10/21 00:38 Albuterol Sulfate (*Sp) Aerosol 1 Puff INHALATION QID PRN Shortness Of Breath Ferrous Sulfate 324 mg 02/10/21 08:00 02/11/21 09:19 Ferrous Sulfate 324 Mg Tablet PO 324 mg BIDWM ANTONIA Administration Sodium Chloride 1,000 mls @ 75 mls/hr 02/09/21 17:35 02/11/21 12:08 Normal Saline Iv IV CONT 125 mls/hr .[id number] ANTONIA Administration Metronidazole 500 mg in 100 mls @ 100 mls/hr 02/10/21 00:00 02/11/21 12:08 Flagyl 500 Mg/Iso Soln 100 Ml IVPB 100 mls/hr Q6HR ANTONIA Administration Levofloxacin/Dextrose 750 mg in 150 mls @ 100 mls/hr 02/10/21 18:00 02/10/21 19:38 Levaquin 750 Mg/D5w 150 Ml IVPB Infused Q24H ANTONIA Infusion Lorazepam 0.5 mg 02/10/21 16:06 Lorazepam (*Crx) 0.5 Mg Tablet PO Q6H PRN Anxiety Mirtazapine 45 mg 02/10/21 21:00 02/10/21 20:11 Mirtazapine 15 Mg Tablet PO 45 mg HS ANTONIA Administration Morphine Sulfate 1 mg 02/11/21 10:40 Morphine Sulfate (*Crx) 2 Mg/Ml Inj IV PUSH Q4HR PRN Pain Rated 7-10 Ondansetron HCl 4 mg 02/09/21 17:33 02/10/21 09:22 Ondansetron Inj 4 Mg/2 Ml Vial IV PUSH 4 mg Q4H PRN Administration Nausea Pantoprazole Sodium 20 mg 02/10/21 09:00 02/11/21 09:19 Pantoprazole Sod Sesquihydrate 20 Mg Tab PO 03/12/21 09:01 20 mg DAILY ANTONIA Administration Radiology Results: ITS Impressions Abdomen/Pelvis CT 02/09/21 16:02 IMPRESSION: 1. Pancolitis most likely infectious or inflammatory in etiology. 2. Likely transient short segment of small bowel intussusception in the right abdomen with no evident lead mass or obstruction. 3. Diffuse mild bladder wall thickening which could be due to incomplete distention or cystitis either acute or chronic. Correlate with urinalysis. Labs Labs: Laboratory Results - last 24 hr 02/11/21 02/11/21 05:49 05:49 Hgb 9.4 L Hct 30.8 L Sodium 139 Potassium 3.2 L Chloride 109 H Carbon Dioxide 27 Anion Gap 3 L BUN 5 L Creatinine 0.80 Estim Creat Clear Calc 75 Estimated GFR > 60 Glucose 83 Calcium 8.8
--- NOTE | 2021-02-11 16:03 | PM.DS ---
DS: Admitting Diagnosis Admitting Diagnosis Admitting Diagnosis: Pancolitis DS: Discharge Diagnosis Discharge Diagnosis (1) Pancolitis: Code(s): K51.00 - Ulcerative (chronic) pancolitis without complications Status: Acute Assessment and Plan: Evident on CT findings. Most likely infectious etiology, although inflammatory colitis cannot be excluded. She was seen in consultation by General surgery and Gastroenterology. She was started on IV Levaquin and Flagyl which she will continue orally as an outpatient to complete a 7 day course of antibiotic therapy. Stool cultures collected and are pending. Cultures will be monitored. Leukocytosis resolved. She remained afebrile. Her diet was slowly advanced and she was able to tolerate a regular diet. She will need to follow-up with gastroenterology as an outpatient. (2) Intussusception: Code(s): K56.1 - Intussusception Status: Acute Assessment and Plan: CT showed likely transient short segment of small bowel intussusception in the right abdomen without evidence of lead, mass, or obstruction. Suspect this has resolved as she denies abdominal pain and abdomen is soft and nontender on exam. She was seen in consultation by General surgery and no further evaluation was required. (3) Celiac disease: Code(s): K90.0 - Celiac disease Status: Acute Assessment and Plan: She reports no issues. Continue strict gluten free diet (4) Anemia: Code(s): D64.9 - Anemia, unspecified Status: Acute Assessment and Plan: Chronic. Suspect iron deficiency anemia as patient is on oral iron supplementation at home. H&H reviewed and was stable on review of prior labs. Continue ferrous sulfate (5) Gastroesophageal reflux disease: Code(s): K21.9 - Gastro-esophageal reflux disease without esophagitis Status: Acute Assessment and Plan: Asymptomatic. Continue home omeprazole DS: Summary Hospital Course Reason for hospitalization: Nausea, vomiting, and diarrhea Hospital Course: Date of admission: 02/09/2021 Date of discharge: 02/11/2021 Susan Hanson is a 45-year-old female with history of celiac disease and GERD who presented to the emergency department on 02/09/2021 abdominal pain, nausea vomiting, and weakness. Upon presentation to the emergency department, her BP was elevated 155/90 with additional vital signs stable and she was afebrile, she had mild leukocytosis in the slight anemia with normal platelet count, electrolytes were stable, showed srivastava colitis most likely infectious or inflammatory in etiology with likely transient short segment of small bowel intussusception in the right abdomen with no evidence of bleed, mass, or obstruction. Service for further evaluation and management was seen in consultation by General surgery and Gastroenterology. Please see above for further details. She was treated for colitis with IV Levaquin and Flagyl and will continue antibiotics as an outpatient. Her symptoms improved significantly and she was feeling much better and able to tolerate a regular diet. She requested discharge home in given her overall improvement, she was determined to no longer require inpatient care and was felt to be stable for discharge. We discussed worrisome signs and symptoms for which to return and she was educated on her medications. She was discharged in hemodynamically stable condition on 02/11/2021 with instructions to follow-up with PCP and GI. Status at Discharge Functional status at discharge: independent ambulation Overall status at discharge: patient is progressing back to baseline Time Spent with Patient Time attestation: Total time spent providing and/or coordinating discharge services: 45 minutes Exam Narrative: Exam Narrative: Ms. Hanson is a well-nourished, well-appearing 45-year-old female who is lying supine in bed. She appears comfortable and is in NARD. Neuro
--- NOTE | 2021-02-11 17:20 | CONS_ITS ---
DATE OF CONSULTATION: 02/11/2021 HISTORY OF PRESENT ILLNESS: 45-year-old female with history of GERD, celiac sprue, asthma, anxiety and depression, H pylori infection in the past, x3. The patient presented on February 09 via EMS to the ER with generalized abdominal pain, nausea, vomiting, and diarrhea. I am now asked to provide GI evaluation at the request of the hospitalist service for same. PRIMARY CARE PROVIDER: Dr. Jose Puente and primary senior architect is Dr. Thais Rodarte. The patient states that her symptoms described above began on the same day as presentation and have basically resolved. She is hungry and feels better. She currently denies abdominal pain, nausea, vomiting, or diarrhea. In general, she denies problems with heartburn on medication, trouble swallowing, loss of appetite or weight, diarrhea, constipation, hematochezia, melena, fever, jaundice, scleral icterus, dark urine, light stools. REVIEW OF SYSTEMS: Negative for chest pain, shortness of breath, hematuria, dysuria, new cough or visual changes, easy bruising, tingling of skin, bone pain or tremors. No endocarditis risk factors. ALLERGIES: TO LATEX. OUTPATIENT MEDICATIONS: Include omeprazole 20 mg daily, albuterol, mirtazapine, iron. In the hospital, she is on Levaquin and Flagyl with improvement. SOCIAL HISTORY: Cigarette smoker, marijuana smoker. Occasional alcohol. FAMILY HISTORY: Negative for GI malignancy. She has 2 sisters with celiac sprue. She has never had colonoscopy. PHYSICAL EXAM: GENERAL: Slender female, lying in bed, no apparent distress. She has no lower extremity edema, jaundice, spider angioma, or palmar erythema. HEENT: Skull is normocephalic, atraumatic. Pupils nonicteric. Oropharynx clear. NECK: Supple without thyromegaly. LUNGS: Clear to auscultation. HEART: Rate and rhythm regular. S1, S2 normal. ABDOMEN: Normoactive bowel sounds. Soft, nontender, nonrigid, nondistended without hepatosplenomegaly or masses. RECTAL: Deferred. NEURO: Conscious and alert x3. LABS: On February 11, hemoglobin 9, hematocrit 31. On February 10, hemoglobin 10, hematocrit 31. On February 09, hematocrit 37, MCV 85, T bilirubin 0.4, alkaline phosphatase 114, AST 48, ALT is 36, lipase is 32. CT scan of the abdomen and pelvis on February 09 shows pancolitis. Question small bowel intussusception and question of thickening of the bladder wall. ASSESSMENT AND PLAN: 1. Gastroesophageal reflux disease. Continue PPI. 2. Chronic blood loss anemia, most likely hydrational and may have component related to sprue. Would follow up as outpatient and consider further evaluation at that time. 3. Generalized abdominal pain, nausea, vomiting, diarrhea, abnormal transaminases and abnormal imaging of the digestive tract consistent with acute infectious colitis, which is now resolving on antibiotics. We finished course of antibiotics as outpatient. We will increase diet. The patient has been seen by Dr. Rodarte in the past, but wishes to follow up with Dr. Donnelly as his office is much closer to her house. Recommend followup with Dr. Donnelly in 1 month and he can consider colonoscopy versus repeat CT scan at that time. Patient is at the age where she is due for colon cancer screening. We will follow up on LFTs at that time as well. 4. Celiac sprue. The patient follows gluten free diet. Consider antibody test as an outpatient to document compliance with diet. Thank you for allowing me to share in the care of this very nice patient. I have to review the case with Fanny MCCABE. SUNSHINE HSU M.D. CC:? Pilo Nazario M.D.
== END 2021-02-11 15:05 | disposition home or self-care (01) | DRG 245 ==
LOC: ANHED 14:18 → ANH3MEDSUR 17:55
PROVIDERS: Physician Assistant; Admitting Provider Internal Medicine; Emergency Provider Emergency Medicine; Visit Provider Family Medicine
DX: K51.00 Ulcerative (chronic) pancolitis without complications (principal); K56.1 Intussusception; K90.0 Celiac disease; D50.0 Iron deficiency anemia secondary to blood loss (chronic); K21.9 Gastro-esophageal reflux disease without esophagitis; J45.909 Unspecified asthma, uncomplicated; F41.8 Other specified anxiety disorders; F17.210 Nicotine dependence, cigarettes, uncomplicated
CPT/HCPCS: 36415; 74177; 80048; 80053; 81001; 81025; 83690; 85014; 85018; 85025; 87015; 87045; 87046; 87269; 87272; 87427; 96361; 96365; 96366; 96367; 96374; 96375; 99285; A9270; G0378; G0379; J0131; J1200; J1956; J2060; J2270; J2405; J2765; J7030; Q9967

== ENCOUNTER 2021-04-18 10:00 | Emergency (ER) | payer OTHER, SELFPAY ==
[2021-04-18 10:13] VITALS: BP 148/85; PULSE 59; RESP 16; TEMP 36.3; O2SAT 100
--- NOTE | 2021-04-18 10:22 | PC.NURSE ---
EDP at bedside.
--- NOTE | 2021-04-18 10:32 | PC.NURSE ---
Pt unable to give ua at this time, fluids infusing per mar, pt refusing straight cath, to attempt sample rosa m.
[2021-04-18] MEDS: ONDANSETRON INJ 4 MG/2 ML VIAL IV PUSH (10:33)
[2021-04-18] MEDS: SODIUM CHLORIDE 0.9% IV 1,000 ML 999 ML IV CONT (10:33)
[2021-04-18 10:38] LABS: Basophils Percent Auto 0.3 % (0.2-1.2); Eosinophils Percent Auto 0.2 % (0-4.4); Hematocrit 35.8 % (37.0-47.0); Hemoglobin 11.1 g/dL (12.0-15.0); Immature Granulocyte Absolute 0.04 K/mm3 (0.00-0.031); Immature Granulocyte Percent A 0.4 % (0-0.5); Lymphocytes Absolute Auto 1.12 K/mm3 (0.9-3.2); Lymphocytes Percent Auto 10.9 % (18.3-44.2); Mean Corpuscular Hemoglobin 25.6 pg (26-34); Mean Corpuscular Volume 82.5 fl (80-100); Mean Platelet Volume 11.8 fl (7.4-10.4); Monocytes Absolute Auto 0.4 K/mm3 (0.1-0.6); Monocytes Percent Auto 3.5 % (2.6-8.5); Neutrophils Absolute Auto 8.7 K/mm3 (1.3-6.7); Neutrophils Percent Auto 84.7 % (45.5-73.1); Platelet Count Result 197 k/mm3 (150-375); Red Blood Count 4.34 M/mm3 (4.2-5.4); Red Cell Distribution Width 15.8 % (11.5-14.5); White Blood Count 10.3 K/mm3 (4.5-10.0)
[2021-04-18 11:00] LABS: Alanine Aminotransferase 29 U/L (4-35); Albumin Level 4.4 g/dL (3.5-5.1); Alkaline Phosphatase 99 U/L (38-126); Anion Gap 8 mmol/L (8-16); Aspartate Amino Transferase 50 U/L (14-36); Bilirubin,Total 0.4 mg/dL (0.2-1.3); Blood Urea Nitrogen 13 mg/dL (7-17); Calcium 9.2 mg/dL (8.4-10.2); Carbon Dioxide 24 mmol/L (22-30); Chloride 105 mmol/L (98-107); Estimated CRCL calculation 75 ml/min; Estimated Glomerular Filt Rate > 60; Glucose 147 mg/dL (65-105); Lipase 47 U/L (23-300); Sodium 137 mmol/L (137-145)
[2021-04-18 11:04] LABS: Hypochromasia 1+ (NORMAL); Platelet Estimate Adequate (Adequate)
[2021-04-18 12:05] LABS: Add Urine Microscopic? YES; Amorphous Sediment Urine Few; Appearance Urine Cloudy (Clear); Bilirubin Urine Negative (Negative); Blood Urine Negative (Negative); Color Urine Yellow (Yellow); Glucose Urine UA Negative (Negative); Ketones Urine Negative (Negative); Leukocyte Esterase Ur Negative LEU/UL (Negative); Mucus Urine Rare /lpf; Nitrate Urine Negative (Negative); Protein Urine Negative (Negative); RBC Urine 0-2 /hpf (0-2); Specific Grav Ur 1.014 (1.001-1.035); Squamous Epithelial Cell Urine Few /hpf (Few); Urobilinogen Urine Negative mg/dL (<2.0); WBC Urine 0-3 /hpf
--- NOTE | 2021-04-18 13:37 | ED.GENADULT ---
HPI - General Adult General Chief complaint: Abdominal Pain Stated complaint: abd pain, N/V Time Seen by Provider: 04/18/21 10:21 History of Present Illness HPI narrative: Patient is a 45-year-old female who presents the ER with abdominal cramping as well as nausea/vomiting/diarrhea. No fevers or chills or sweats. No known sick contacts. No aggravating or alleviating factors. Pain is cramping in her lower abdomen without radiation. Related Data Home Medications Medication Instructions Recorded Confirmed omeprazole 20 mg PO DAILY 04/15/20 02/09/21 mirtazapine 45 mg PO DAILY 09/09/20 02/09/21 albuterol sulfate [Ventolin HFA] 2 puff INHALATION QID PRN 02/09/21 02/09/21 ferrous sulfate 325 mg PO BID 02/09/21 02/09/21 Allergies Allergy/AdvReac Type Severity Reaction Status Date / Time gluten Allergy Gastrointestinal Verified 02/10/21 08:08 Upset latex Allergy Hives Verified 02/09/21 15:39 Review of Systems Review of Systems: All systems reviewed & are unremarkable except as noted in HPI and below Constitutional: Constitutional: Denies chills, Reports fatigue, Denies fever(s) and Reports weakness ENT: Denies nasal congestion and Denies sore throat Cardiovascular: Cardiovascular: Denies chest pain and Denies radiating jaw, neck or arm pain Respiratory: Respiratory: Denies cough, Denies dyspnea and Denies wheezing Gastrointestinal: Gastrointestinal: Reports abdominal pain, Reports diarrhea, Reports nausea and Reports vomiting PMFSH Past Medical History Medical History Anemia Asthma Celiac disease Depression with anxiety Gastroesophageal reflux disease H. pylori infection Nicotine use Surgical History Surgical History History of section X3 Family History Family History Father Heart disease Mother Heart disease Diabetes mellitus Hyperlipemia Hypertension Social History Social History Social History: Surrogate decision maker: Kamaljit Terence (friend) and Germán Hanson (daughter). Code status: Full code. Smoking status: Current some day smoker Tobacco type: cigars Alcohol intake: current Drinks per week: 1 Substance use: current Substance use type: marijuana Last use: 02/08/2021 Additional living arrangements comments: Resides in [place] with a friend. Additional occupation/education comments: Not currently employed. Gender identity (if verbalized by the patient): Female Spiritual care concerns: No Exam Narrative: Exam Narrative: GENERAL: Fatigued-appearing, well-nourished, and in no acute distress. HEAD: Normocephalic, atraumatic. ENT: Mucous membranes moist. CHEST: Clear to auscultation. No respiratory distress. HEART: Regular rate and rhythm. Normal peripheral pulses. ABDOMEN: Soft, nontender, nondistended. EXTREMITIES: Normal range of motion. No edema. SKIN: Warm, dry, no rash. NEURO: Alert and oriented x3. PSYCH: Normal mood and affect. Course Course Emergency Course: Unremarkable evaluation. Patient resting comfortably after antiemetics and IV fluids. Tolerating p.o. Discharge home. Vital Signs Vital signs: Vital Signs Temperature 97.3 F L 04/18/21 10:13 Pulse Rate 59 L 04/18/21 10:13 Respiratory Rate 16 04/18/21 10:13 Blood Pressure 148/85 H 04/18/21 10:13 Pulse Oximetry 100 04/18/21 10:13 Temperature 97.3 F L 04/18/21 10:13 Pulse Rate 59 L 04/18/21 10:13 Respiratory Rate 16 04/18/21 10:13 Blood Pressure 148/85 H 04/18/21 10:13 Pulse Oximetry 100 04/18/21 10:13 Medical Decision Making Vital Signs Vital Signs: Vital Signs Temperature 97.3 F L 04/18/21 10:13 Pulse Rate 59 L 04/18/21 10:13 Respiratory Rate 16 04/18/21 10:13 Blood Pressure 148/85 H 04/18/21 10:13
[2021-04-18 14:01] VITALS: BP 137/82; PULSE 60; RESP 16; O2SAT 100
== END 2021-04-18 14:05 | disposition home or self-care (01) ==
PROVIDERS: Emergency Provider Emergency Medicine; PCP Family Medicine
DX: K52.9 Noninfective gastroenteritis and colitis, unspecified (principal); J45.909 Unspecified asthma, uncomplicated; K90.0 Celiac disease; K21.9 Gastro-esophageal reflux disease without esophagitis; F41.8 Other specified anxiety disorders; F17.290 Nicotine dependence, other tobacco product, uncomplicated
CPT/HCPCS: 36415; 80053; 81001; 83690; 85025; 96361; 96374; 99284; J2405; J7030

== ENCOUNTER 2022-08-18 01:53 | Emergency (ER) | payer OTHER, SELFPAY ==
--- NOTE | ~2022-08-18 | XR_ITS ---
EXAMINATION: XR chest 1V portable Exam Date/Time: 08/18/2022 2:45 SMOG TECHNICIAN HISTORY: tachycardia Comparison: None available. RESULT: Lines, tubes, and devices: None. Lungs and pleura: Clear. Cardiomediastinal silhouette: Normal. Other: No acute osseous or upper abdominal finding. IMPRESSION: No acute cardiopulmonary process. Reviewed, dictated and finalized at location K. TECHNICIAN
[2022-08-18 01:57] VITALS: BP 133/80; PULSE 127; RESP 20; TEMP 37.9; O2SAT 94
--- NOTE | 2022-08-18 02:35 | ED.GENADULT ---
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 She has had several episodes of nausea and vomiting and diarrhea. Patient is not vaccinated against flu. She is vaccinated COVID. She did denies sick contacts at home. Related Data Home Medications Medication Instructions Recorded Confirmed omeprazole 20 mg tablet,delayed 20 mg PO DAILY 04/15/20 02/09/21 release mirtazapine 30 mg tablet 45 mg PO DAILY 09/09/20 02/09/21 albuterol sulfate 90 mcg/actuation 2 puff inhalation QID PRN 02/09/21 02/09/21 aerosol inhaler (Ventolin HFA) Shortness Of Breath ferrous sulfate 325 mg (65 mg 325 mg PO BID 02/09/21 02/09/21 iron) tablet Allergies Allergy/AdvReac Type Severity Reaction Status Date / Time gluten Allergy Gastrointestinal Verified 08/18/22 01:57 CDT Upset latex Allergy Hives Verified 08/18/22 01:57 CDT Review of Systems Review of Systems: CONSTITUTIONAL: Denies night sweats. EYES: No eye pain ENT: Denies rhinorrhea CARDIOVASCULAR: Denies palpitations RESPIRATORY: Denies hemoptysis GASTROINTESTINAL: Denies hematemesis GENITOURINARY: Denies hematuria. SKIN: Denies rash MUSCULOSKELETAL: Denies myalgia. NEUROLOGIC: Denies weakness. PSYCHIATRIC: Denies delusions PMFSH Past Medical History Medical History Anemia Asthma Celiac disease Depression with anxiety Gastroesophageal reflux disease H. pylori infection Nicotine use Surgical History Surgical History History of section X3 Family History Family History Father Heart disease Mother Heart disease Diabetes mellitus Hyperlipemia Hypertension Social History Social History Social History: Surrogate decision maker: Kamaljit Pratt (friend) and Fatimahcaromildred Valentin (daughter). Code status: Full code. Smoking status: Current some day smoker Tobacco type: cigars Alcohol intake: current Drinks per week: 1 Substance use: current Substance use type: marijuana Last use: 02/08/2021 Additional living arrangements comments: Resides in [place] with a friend. Additional occupation/education comments: Not currently employed. Gender identity (if verbalized by the patient): Female Spiritual care concerns: No Exam Narrative: APPEARANCE: Patient is lying in bed appearing uncomfortable Head: atraumatic. EYES: EOMI, NOSE: Atraumatic NECK: Trachea midline RESPIRATORY: No increased rate of breathing lungs are clear to auscultation bilaterally CARDIOVASCULAR: tachycardic, no peripheral edema ABDOMINAL: Non-distended, note nontender no guarding rebound MUSCULOSKELETAl: No obvious deformities NEURO: Alert. Moving 4/4 extremities SKIN:: Warm, dry. Normal color PSYCHIATRIC: Normal affect Course Vital Signs Vital signs: Vital Signs Temperature 100.3 F H 08/18/22 01:57 CDT Pulse Rate 127 H 08/18/22 01:57 CDT Respiratory Rate 20 08/18/22 01:57 CDT Blood Pressure 133/80 08/18/22 01:57 CDT Pulse Oximetry 94 08/18/22 01:57 CDT Oxygen Delivery Room Air 08/18/22 01:57 CDT Temperature 100.3 F H 08/18/22 01:57 CDT Pulse Rate 127 H 08/18/22 01:57 CDT Respiratory Rate 20 08/18/22 01:57 CDT Blood Pressure 133/80 08/18/22 01:57 CDT Pulse Oximetry 94 08/18/22 01:57 CDT Oxygen Delivery Room Air 08/18/22 01:57 CDT Medical Decision Making MDM Narrative Medical decision making narrative: is a 46-year-old female presenting ED with 2 days of flu-like s
--- NOTE | 2022-08-18 02:40 | ECG_ITS ---
Measurements Intervals [place] Rate: 118 P: 59 MO: 172 QRS: 26 QRSD: 71 T: 53 QT: 316 QTc: 443 Interpretive Statements SINUS TACHYCARDIA BASELINE ARTIFACT- I, II, AVR, V1, V5 ABNORMAL ECG NO PREVIOUS ECG AVAILABLE FOR COMPARISON Electronically Signed On 08-18-2022 7:25:44 HISTORIC SITES REGISTRAR by Evens Willoughby D.O.
[2022-08-18] MEDS: SODIUM CHLORIDE 0.9% IV 2,000 ML 999 ML IV CONT (03:06)
[2022-08-18] MEDS: ACETAMINOPHEN 500 MG TABLET 1000 MG PO (03:07)
[2022-08-18] MEDS: IBUPROFEN 400 MG TABLET 800 MG PO (03:07)
[2022-08-18 03:11] LABS: Basophils Percent Auto 0.3 % (0.2-1.2); Eosinophils Percent Auto 0.2 % (0-4.4); Hematocrit 36.3 % (37.0-47.0); Hemoglobin 11.4 g/dL (12.0-15.0); Immature Granulocyte Absolute 0.02 K/mm3 (0.00-0.031); Immature Granulocyte Percent A 0.3 % (0-0.5); Lymphocytes Absolute Auto 0.54 K/mm3 (0.9-3.2); Lymphocytes Percent Auto 8.3 % (18.3-44.2); Mean Corpuscular HGB Conc 31.4 g/dl (32-36); Mean Platelet Volume 11.4 fl (7.4-10.4); Monocytes Absolute Auto 0.7 K/mm3 (0.1-0.6); Monocytes Percent Auto 10.6 % (2.6-8.5); Neutrophils Absolute Auto 5.2 K/mm3 (1.3-6.7); Neutrophils Percent Auto 80.3 % (45.5-73.1); Platelet Count Result 202 k/mm3 (150-375); Red Blood Count 4.22 M/mm3 (4.2-5.4); Red Cell Distribution Width 14.2 % (11.5-14.5); White Blood Count 6.5 K/mm3 (4.5-10.0)
[2022-08-18 03:19] LABS: Alanine Aminotransferase 42 U/L (6-35); Albumin Level 4.3 g/dL (3.5-5.1); Alkaline Phosphatase 121 U/L (38-126); Anion Gap 13 mmol/L (8-16); Aspartate Amino Transferase 49 U/L (14-36); Bilirubin,Total 0.2 mg/dL (0.2-1.3); Blood Urea Nitrogen 11 mg/dL (7-17); Calcium 8.6 mg/dL (8.4-10.2); Carbon Dioxide 23 mmol/L (22-30); Chloride 101 mmol/L (98-107); Estimated CRCL calculation 97 ml/min; Estimated Glomerular Filt Rate > 60; Glucose 109 mg/dL (65-110); Lipase 41 U/L (23-300); Magnesium 1.7 mg/dL (1.6-2.3); Potassium 3.6 mmol/L (3.4-5.0); Sodium 137 mmol/L (137-145)
[2022-08-18 03:22] LABS: Influenza A QL RT-PCR Positive (Negative); Influenza B QL RT-PCR Negative (Negative); SARS-CoV-2 RNA PCR Negative
[2022-08-18 05:12] VITALS: PULSE 109; RESP 18; O2SAT 99
[2022-08-18 05:22] VITALS: PULSE 108; RESP 18; O2SAT 97
== END 2022-08-18 05:16 | disposition home or self-care (01) ==
PROVIDERS: Emergency Provider Emergency Medicine; PCP Family Medicine
DX: J10.1 Influenza due to other identified influenza virus with other respiratory manifestations (principal); Z20.822 Contact with and (suspected) exposure to COVID-19; J45.909 Unspecified asthma, uncomplicated; K90.0 Celiac disease; K21.9 Gastro-esophageal reflux disease without esophagitis; D64.9 Anemia, unspecified; R00.0 Tachycardia, unspecified; F17.290 Nicotine dependence, other tobacco product, uncomplicated
CPT/HCPCS: 36415; 71045; 80053; 83690; 83735; 85025; 87081; 87502; 87880; 93005; 96360; 99283; A9270; J7030; U0003; U0005

== ENCOUNTER 2024-03-14 00:09 | Emergency (ER) | payer OTHER, SELFPAY ==
--- NOTE | ~2024-03-14 | XR_ITS ---
EXAMINATION: XR chest 1V portable 03/14/2024 01:16 INDICATION: Midsternal chest pain PROCEDURE: AP portable chest COMPARISON: 08/18/2022 FINDINGS: The lungs are clear. The cardiomediastinal silhouette is within normal limits. There are no pleural effusions. There is no pneumothorax suspected. IMPRESSION: 1: NO ACUTE CARDIOPULMONARY DISEASE. Reviewed, dictated and finalized at location B.
[2024-03-14 00:07] VITALS: BP 129/86; PULSE 81; RESP 14; TEMP 36.6; O2SAT 100
--- NOTE | 2024-03-14 00:12 | ECG_ITS ---
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 Measurements Intervals [place] Rate: 82 P: 54 IN: 191 QRS: 18 QRSD: 73 T: 39 QT: 368 QTc: 431 Interpretive Statements SINUS RHYTHM No previous ECG available for comparison Electronically Signed On 03-14-2024 12:07:56 CDT by Ajay Clayton M.D.
[2024-03-14 00:16] VITALS: O2SAT 100
[2024-03-14 00:21] LABS: Basophils Percent Auto 0.5 % (0.2-1.2); Eosinophils Absolute Auto 0.1 K/mm3 (0-0.3); Eosinophils Percent Auto 1.4 % (0-4.4); Hematocrit 36.8 % (37.0-47.0); Immature Granulocyte Absolute 0.01 K/mm3 (0.00-0.031); Immature Granulocyte Percent A 0.2 % (0-0.5); Lymphocytes Absolute Auto 1.93 K/mm3 (0.9-3.2); Lymphocytes Percent Auto 33.3 % (18.3-44.2); Mean Corpuscular HGB Conc 29.9 g/dl (32-36); Mean Corpuscular Hemoglobin 25.6 pg (26-34); Mean Corpuscular Volume 85.8 fl (80-100); Mean Platelet Volume 11.5 fl (7.4-10.4); Monocytes Absolute Auto 0.5 K/mm3 (0.1-0.6); Monocytes Percent Auto 7.9 % (2.6-8.5); Neutrophils Absolute Auto 3.3 K/mm3 (1.3-6.7); Neutrophils Percent Auto 56.7 % (45.5-73.1); Platelet Count Result 247 k/mm3 (150-375); Red Blood Count 4.29 M/mm3 (4.2-5.4); Red Cell Distribution Width 15.5 % (11.5-14.5); White Blood Count 5.8 K/mm3 (4.5-10.0)
[2024-03-14 00:31] LABS: Prothrombin Time 13.9 Seconds (11.1-14.7)
[2024-03-14 00:32] LABS: Partial Thromboplastin Time 27.4 Seconds (22.3-36.8)
[2024-03-14 00:37] LABS: Alanine Aminotransferase 38 U/L (6-35); Albumin Level 4.4 g/dL (3.5-5.1); Alkaline Phosphatase 130 U/L (38-126); Anion Gap 8 mmol/L (4-12); Aspartate Amino Transferase 47 U/L (14-36); Bilirubin,Total 0.4 mg/dL (0.2-1.3); Blood Urea Nitrogen 15 mg/dL (7-17); Calcium 9.4 mg/dL (8.4-10.2); Carbon Dioxide 25 mmol/L (22-30); Chloride 107 mmol/L (98-107); Estimated CRCL calculation 73 ml/min; Estimated Glomerular Filt Rate > 60; Glucose 93 mg/dL (65-110); Lipase 87 U/L (23-300); Potassium 3.5 mmol/L (3.4-5.0); Sodium 140 mmol/L (137-145)
[2024-03-14 00:49] LABS: Troponin I < 0.012 ng/mL (0.000-0.034)
[2024-03-14 04:05] LABS: Troponin I < 0.012 ng/mL (0.000-0.034)
[2024-03-14 04:18] VITALS: BP 130/70; PULSE 69; RESP 14; O2SAT 100
--- NOTE | 2024-03-14 04:30 | ED.GENADULT ---
HPI - General Adult General Chief complaint: Chest Pain Stated complaint: Chest pain Time Seen by Provider: 03/14/24 00:12 History of Present Illness HPI narrative: patient is a 48-year-old female presents emergency department with chief complaint of chest pain. Patient reports about 45 minutes prior to arrival started having a sharp stabbing pain in her chest that radiated to her back patient did feel slightly short of breath the patient was given nitroglycerin by EMS and aspirin patient reports after receiving nitroglycerin she started having a headache help patient also reports that she had a small cut to her finger the patient reports that she is unsure of her last tetanus shot. Related Data Home Medications Medication Instructions Recorded Confirmed omeprazole 20 mg tablet,delayed 20 mg PO DAILY 04/15/20 02/09/21 release mirtazapine 30 mg tablet 45 mg PO DAILY 09/09/20 02/09/21 albuterol sulfate 90 mcg/actuation 2 puff inhalation QID PRN 02/09/21 02/09/21 aerosol inhaler (Ventolin HFA) Shortness Of Breath ferrous sulfate 325 mg (65 mg 325 mg PO BID 02/09/21 02/09/21 iron) tablet Allergies Allergy/AdvReac Type Severity Reaction Status Date / Time gluten Allergy Gastrointestinal Verified 03/14/24 00:16 Upset latex Allergy Hives Verified 03/14/24 00:16 Review of Systems Review of Systems: A 10 system review of systems was completed on the patient and is negative except for what is stated in the HPI. Nursing and ancillary documentation was reviewed. PMFSH Past Medical History Medical History Anemia Asthma Celiac disease Depression with anxiety Gastroesophageal reflux disease H. pylori infection Nicotine use Surgical History Surgical History History of section X3 Family History Family History Father Heart disease Mother Heart disease Diabetes mellitus Hyperlipemia Hypertension Social History Social History Social History: Surrogate decision maker: Kamaljit Terence (friend) and Germán Hanson (daughter). Code status: Full code. Smoking status: Current some day smoker Tobacco type: cigars Alcohol intake: current Drinks per week: 1 Substance use: current Substance use type: marijuana Last use: 02/08/2021 Additional living arrangements comments: Resides in [place] with a friend. Additional occupation/education comments: Not currently employed. Gender identity (if verbalized by the patient): Female Spiritual care concerns: No Exam Narrative: GENERAL: Well-appearing, well-nourished, and in no acute distress. HEAD: Normocephalic, atraumatic. EYES: PERRLA and EOMI. ENT: Nares clear, no rhinorrhea or epistaxis. Mucous membranes moist. NECK: Supple. CHEST: Clear to auscultation. No respiratory distress. HEART: Regular rate and rhythm. No murmur heard. Normal peripheral pulses. ABDOMEN: Soft, nontender, nondistended, normal active bowel sounds. EXTREMITIES: Normal range of motion. No edema. SKIN: Warm, dry, no rash. NEURO: No focal deficits. Alert and oriented x3. PSYCH: Normal mood and affect. Course Vital Signs Vital signs: Vital Signs Temperature 36.6 C 03/14/24 00:07 Pulse Rate 81 03/14/24 00:07 Respiratory Rate 14 03/14/24 00:07 Blood Pressure 129/86 03/14/24 00:07 Pulse Oximetry 100 03/14/24 00:07 Oxygen Delivery Room Air 03/14/24 00:07 Temperature 36.6 C 03/14/24 00:07 Pulse Rate 69 03/14/24 04:18 Respiratory Rate 14 03/14/24 04:18 Blood Pressure 130/70 03/14/24 04:18 Pulse Oximetry 100 03/14/24 04:18 Oxygen Delivery Room Air 03/14/24 00:16 Procedures Laceration Laceration 1: Date: 03/14/24 Time: 05:33 Site: hand ( middle finger)
[2024-03-14] MEDS: LIDOCAINE HCL 1% LOCAL INJ 10 ML VIAL INFILTRATE (05:42)
[2024-03-14] MEDS: TETANUS,DIPHTHERIA,AC PERTUSSIS ADULT (0.5 ML) BOOSTRIX IM (05:42)
== END 2024-03-14 05:52 | disposition home or self-care (01) ==
PROVIDERS: Emergency Provider Emergency Medicine; PCP Family Medicine
DX: R07.9 Chest pain, unspecified (principal); S61.213A Laceration without foreign body of left middle finger without damage to nail, initial encounter; D64.9 Anemia, unspecified; J45.909 Unspecified asthma, uncomplicated; F41.9 Anxiety disorder, unspecified; F32.A Depression, unspecified; K21.9 Gastro-esophageal reflux disease without esophagitis; Z72.0 Tobacco use; X58.XXXA Exposure to other specified factors, initial encounter; Z23 Encounter for immunization
CPT/HCPCS: 12001; 36415; 71045; 80053; 83690; 84484; 85025; 85610; 85730; 90471; 90715; 93005; 99284

== ENCOUNTER 2024-05-03 20:10 | Emergency (ER) | payer SELFPAY ==
[2024-05-03 20:16] VITALS: BP 129/82; PULSE 96; RESP 18; TEMP 36.3; O2SAT 100
--- NOTE | 2024-05-03 22:10 | ECG_ITS ---
Test Date: 2024-05-03 22:07:02 Measurements Intervals [place] Rate: 80 P: 54 NV: 177 QRS: 38 QRSD: 80 T: 46 QT: 382 QTc: 443 Interpretive Statements SINUS RHYTHM ATRIAL PREMATURE COMPLEXES BASELINE ARTIFACT- I, II, AVR, V1 BORDERLINE ECG Compared to ECG 03/14/2024 00:13:06 No significant changes Electronically Signed On 05-04-2024 07:10:32 CDT by Evens Willoughby D.O.
[2024-05-03 22:31] VITALS: BP 129/80; PULSE 82; RESP 15; O2SAT 100
[2024-05-03 22:56] LABS: Basophils Percent Auto 0.3 % (0.2-1.2); Eosinophils Absolute Auto 0.1 K/mm3 (0-0.3); Eosinophils Percent Auto 1.3 % (0-4.4); Hematocrit 34.2 % (37.0-47.0); Hemoglobin 10.3 g/dL (12.0-15.0); Immature Granulocyte Absolute 0.02 K/mm3 (0.00-0.031); Immature Granulocyte Percent A 0.2 % (0-0.5); Lymphocytes Absolute Auto 1.47 K/mm3 (0.9-3.2); Lymphocytes Percent Auto 16.2 % (18.3-44.2); Mean Corpuscular HGB Conc 30.1 g/dl (32-36); Mean Corpuscular Hemoglobin 25.7 pg (26-34); Mean Corpuscular Volume 85.3 fl (80-100); Mean Platelet Volume 11.5 fl (7.4-10.4); Monocytes Absolute Auto 0.5 K/mm3 (0.1-0.6); Monocytes Percent Auto 5.9 % (2.6-8.5); Neutrophils Absolute Auto 6.9 K/mm3 (1.3-6.7); Neutrophils Percent Auto 76.1 % (45.5-73.1); Platelet Count Result 211 k/mm3 (150-375); Red Blood Count 4.01 M/mm3 (4.2-5.4); Red Cell Distribution Width 14.8 % (11.5-14.5); White Blood Count 9.1 K/mm3 (4.5-10.0)
--- NOTE | 2024-05-03 22:59 | ED.NAVMDI ---
HPI - Nausea/Vomiting/Diarrhea General Chief complaint: Allergic Reaction Stated complaint: allergic reaction Time Seen by Provider: 05/03/24 22:12 Source: patient Mode of arrival: ambulatory Limitations: no limitations History of Present Illness HPI Narrative: This is a 48 year old female that presents to the ER for nausea and vomiting. Reports she was at urgent care and was treated for a UTI. Reports she received a dose of Ceftriaxone, Toradol and Tylenol. Reports when she got home she had a lot of nausea and vomiting. She was having some chest discomfort. Reports feeling better now. Denies shortness of breath. Related Data Home Medications Medication Instructions Recorded Confirmed omeprazole 20 mg tablet,delayed 20 mg PO DAILY 04/15/20 02/09/21 release mirtazapine 30 mg tablet 45 mg PO DAILY 09/09/20 02/09/21 albuterol sulfate 90 mcg/actuation 2 puff inhalation QID PRN 02/09/21 02/09/21 aerosol inhaler (Ventolin HFA) Shortness Of Breath ferrous sulfate 325 mg (65 mg 325 mg PO BID 02/09/21 02/09/21 iron) tablet Allergies Allergy/AdvReac Type Severity Reaction Status Date / Time gluten Allergy Gastrointestinal Verified 03/14/24 00:16 Upset latex Allergy Hives Verified 03/14/24 00:16 Review of Systems Review of Systems: CONSTITUTIONAL: Denies fever CARDIOVASCULAR: Reports chest pain. Denies edema. RESPIRATORY: Denies dyspnea. All systems reviewed & are unremarkable except as noted in HPI and below PMFSH Past Medical History Medical History Anemia Asthma Celiac disease Depression with anxiety Gastroesophageal reflux disease H. pylori infection Nicotine use Surgical History Surgical History History of section X3 Family History Family History Father Heart disease Mother Heart disease Diabetes mellitus Hyperlipemia Hypertension Social History Social History Social History: Surrogate decision maker: Kamaljit Terence (friend) and Germán Hanson (daughter). Code status: Full code. Smoking status: Current some day smoker Tobacco type: cigars Alcohol intake: current Drinks per week: 1 Substance use: current Substance use type: marijuana Last use: 02/08/2021 Additional living arrangements comments: Resides in [place] with a friend. Additional occupation/education comments: Not currently employed. Gender identity (if verbalized by the patient): Female Spiritual care concerns: No Exam Narrative: GENERAL: Well-appearing, well-nourished, and in no acute distress. HEAD: Normocephalic, atraumatic. EYES: EOMI. CHEST: Clear to auscultation. No respiratory distress. No wheezes rales or rhonchi HEART: Regular rate and rhythm. No murmur heard. Normal peripheral pulses. ABDOMEN: Soft, nondistended EXTREMITIES: Normal range of motion. No edema. SKIN: Warm, dry, no rash. NEURO: No focal deficits. Alert and oriented x3. PSYCH: Normal mood and affect Course Course Emergency Course: Patient updated on her workup. Reports feeling well. Ready for discharge Vital Signs Vital signs: Vital Signs Temperature 97.3 F L 05/03/24 20:16 Pulse Rate 96 05/03/24 20:16 Respiratory Rate 18 05/03/24 20:16 Blood Pressure 129/82 05/03/24 20:16 Pulse Oximetry 100 05/03/24 20:16 Oxygen Delivery Room Air 05/03/24 20:16 Temperature 97.3 F L 05/03/24 20:16 Pulse Rate 82 05/03/24 22:31 Respiratory Rate 15 05/03/24 22:31 Blood Pressure 129/80 05/03/24 22:31 Pulse Oximetry 100 05/03/24 22:31 Oxygen Delivery Room Air 05/03/24 22:31 MDM - Nausea/Vomiting/Diarrhea MDM Narrative Medical decision making narrative: Patient presents to the emergency department for nausea and vomiting. Also reporting chest dis
[2024-05-03 23:20] LABS: Alanine Aminotransferase 37 U/L (6-35); Alkaline Phosphatase 115 U/L (38-126); Anion Gap 11 mmol/L (4-12); Aspartate Amino Transferase 42 U/L (14-36); Bilirubin,Total 0.2 mg/dL (0.2-1.3); Blood Urea Nitrogen 8 mg/dL (7-17); Calcium 8.8 mg/dL (8.4-10.2); Carbon Dioxide 26 mmol/L (22-30); Chloride 102 mmol/L (98-107); Estimated CRCL calculation 82 ml/min; Estimated Glomerular Filt Rate > 60; Glucose 119 mg/dL (65-110); Lipase 57 U/L (23-300); Potassium 3.5 mmol/L (3.4-5.0); Sodium 139 mmol/L (137-145)
[2024-05-03 23:31] LABS: Troponin I < 0.012 ng/mL (0.000-0.034)
[2024-05-04 00:15] VITALS: BP 128/72; PULSE 72; RESP 13; O2SAT 100
== END 2024-05-04 00:15 | disposition home or self-care (01) ==
PROVIDERS: Emergency Provider Physician Assistant; PCP Family Medicine
DX: R11.2 Nausea with vomiting, unspecified (principal); J45.909 Unspecified asthma, uncomplicated; D64.9 Anemia, unspecified; K90.0 Celiac disease; K21.9 Gastro-esophageal reflux disease without esophagitis; F41.8 Other specified anxiety disorders; F17.200 Nicotine dependence, unspecified, uncomplicated; Z79.899 Other long term (current) drug therapy; I49.1 Atrial premature depolarization
CPT/HCPCS: 36415; 80053; 83690; 84484; 85025; 93005; 99284

== ENCOUNTER 2024-06-28 09:34 | Emergency (ER) | payer SELFPAY ==
--- NOTE | ~2024-06-28 | CT_ITS ---
EXAMINATION: CT brain wo con DATE: 06/28/2024 11:24 INDICATION: Headache. TECHNIQUE: Computed tomography (CT) of the head was performed without intravenous contrast. The mA wa s adjusted according to patient size. Iterative reconstruction technique was employed. The dose-lengt h product was 529.67 mGy-cm. COMPARISON: None FINDINGS: There is no intracranial hemorrhage, acute infarction, or abnormal intracranial mass lesion . The ventricles are normal in size. The orbits are normal. There is mild mucosal thickening in the p aranasal sinuses. The mastoid air cells are normal. IMPRESSION: 1. Normal brain. Reviewed, dictated and finalized at location A. IMPRESSION: 1. Normal brain.
[2024-06-28 09:41] VITALS: BP 126/75; PULSE 91; RESP 15; TEMP 36.8; O2SAT 99
--- NOTE | 2024-06-28 10:42 | ED.GENADULT ---
HPI - General Adult General Chief complaint: Headache Stated complaint: HEADACHE Time Seen by Provider: 06/28/24 10:27 History of Present Illness HPI narrative: 48-year-old female with no prior history of migraine presenting to the emergency department for evaluation for headache. Patient reports that she does not after in get headaches. Patient reports headaches are atypical for her. Patient denies any fevers falls or injuries. Patient denies any associated nausea or vomiting. Patient has not taken anything for pain control. Patient is not appear to be in significant distress at time of evaluation. Related Data Home Medications Medication Instructions Recorded Confirmed omeprazole 20 mg tablet,delayed 20 mg PO DAILY 04/15/20 02/09/21 release mirtazapine 30 mg tablet 45 mg PO DAILY 09/09/20 02/09/21 albuterol sulfate 90 mcg/actuation 2 puff inhalation QID PRN 02/09/21 02/09/21 aerosol inhaler (Ventolin HFA) Shortness Of Breath ferrous sulfate 325 mg (65 mg 325 mg PO BID 02/09/21 02/09/21 iron) tablet Allergies Allergy/AdvReac Type Severity Reaction Status Date / Time gluten Allergy Gastrointestinal Verified 06/28/24 10:18 Upset latex Allergy Hives Verified 06/28/24 10:18 Review of Systems Review of Systems: All systems reviewed & are unremarkable except as noted in HPI and below PMFSH Past Medical History Medical History Anemia Asthma Celiac disease Depression with anxiety Gastroesophageal reflux disease H. pylori infection Nicotine use Surgical History Surgical History History of section X3 Family History Family History Father Heart disease Mother Heart disease Diabetes mellitus Hyperlipemia Hypertension Social History Social History Social History: Surrogate decision maker: Kamaljit Terence (friend) and Germán Hanson (daughter). Code status: Full code. Smoking status: Current some day smoker Tobacco type: cigars Alcohol intake: current Drinks per week: 1 Substance use: current Substance use type: marijuana Last use: 02/08/2021 Additional living arrangements comments: Resides in [place] with a friend. Additional occupation/education comments: Not currently employed. Gender identity (if verbalized by the patient): Female Spiritual care concerns: No Exam Narrative: APPEARANCE: Well appearing, no pain, no distress, well-nourished. HEAD: normocephalic, atraumatic. EYES: PERRLA/EOMI, conjunctivae clear. NOSE: Normal no drainage EARS:TMS clear with good light reflex. THROAT: Pharynx clear, no exudate. NECK: Supple. No adenopathy, no masses. RESPIRATORY: Airway patent, respirations nonlabored. Clear to auscultation bilaterally, no rales, rhonchi, wheezing. CARDIOVASCULAR: Regular rate and rhythm without murmurs rubs or gallops. ABDOMINAL: Soft, nontender, nondistended, normal bowel sounds MUSCULOSKELETAL: Moves all extremities. Strength/ROM intact, No edema, No calf tenderness. NEURO: Alert. Cranial nerves II through XII intact. Good gait. Good coordination SKIN: Warm, dry. Normal Color Course Course Emergency Course: Headache for follow-up with treatment and patient was discharged to Vital Signs Vital signs: Vital Signs Temperature 98.3 F 06/28/24 09:41 Pulse Rate 91 06/28/24 09:41 Respiratory Rate 15 06/28/24 09:41 Blood Pressure 126/75 06/28/24 09:41 Pulse Oximetry 99 06/28/24 09:41 Oxygen Delivery Room Air 06/28/24 09:41 Temperature 97.6 F 06/28/24 12:57 Pulse Rate 63 06/28/24 12:57 Respiratory Rate 15 06/28/24 12:57 Blood Pressure 124/88 06/28/24 12:57 Pulse Oximetry 100 06/28/24 12:57 Oxygen Delivery Room Air 06/28/24 09:41 Medical Decision Making RAYMON [place]
[2024-06-28 10:45] LABS: Basophils Percent Auto 0.7 % (0.2-1.2); Eosinophils Absolute Auto 0.2 K/mm3 (0-0.3); Eosinophils Percent Auto 4.9 % (0-4.4); Hematocrit 36.7 % (37.0-47.0); Hemoglobin 11.3 g/dL (12.0-15.0); Immature Granulocyte Absolute 0.01 K/mm3 (0.00-0.031); Immature Granulocyte Percent A 0.2 % (0-0.5); Lymphocytes Absolute Auto 1.83 K/mm3 (0.9-3.2); Mean Corpuscular HGB Conc 30.8 g/dl (32-36); Mean Corpuscular Hemoglobin 26.6 pg (26-34); Mean Corpuscular Volume 86.4 fl (80-100); Mean Platelet Volume 11.1 fl (7.4-10.4); Monocytes Absolute Auto 0.4 K/mm3 (0.1-0.6); Monocytes Percent Auto 9.6 % (2.6-8.5); Neutrophils Absolute Auto 1.9 K/mm3 (1.3-6.7); Neutrophils Percent Auto 43.6 % (45.5-73.1); Platelet Count Result 232 k/mm3 (150-375); Red Blood Count 4.25 M/mm3 (4.2-5.4); Red Cell Distribution Width 14.8 % (11.5-14.5); White Blood Count 4.5 K/mm3 (4.5-10.0)
[2024-06-28] MEDS: SODIUM CHLORIDE 0.9% IV 1,000 ML 999 ML IV CONT (10:49)
[2024-06-28 10:57] LABS: Alanine Aminotransferase 33 U/L (6-35); Albumin Level 4.2 g/dL (3.5-5.1); Alkaline Phosphatase 122 U/L (38-126); Anion Gap 5 mmol/L (4-12); Aspartate Amino Transferase 40 U/L (14-36); Bilirubin,Total 0.2 mg/dL (0.2-1.3); Blood Urea Nitrogen 8 mg/dL (7-17); Calcium 8.6 mg/dL (8.4-10.2); Carbon Dioxide 26 mmol/L (22-30); Chloride 104 mmol/L (98-107); Estimated CRCL calculation 65 ml/min; Estimated Glomerular Filt Rate > 60; Glucose 89 mg/dL (65-110); Potassium 3.9 mmol/L (3.4-5.0); Sodium 135 mmol/L (137-145)
[2024-06-28] MEDS: diphenhydrAMINE HCl INJ 50 MG/ML VIAL 25 MG IV PUSH (11:11)
[2024-06-28] MEDS: PROCHLORPERAZINE EDISYLATE 10 MG/2 ML VIAL IV PUSH (11:12)
[2024-06-28 12:57] VITALS: BP 124/88; PULSE 63; RESP 15; TEMP 36.4; O2SAT 100
== END 2024-06-28 12:58 | disposition home or self-care (01) ==
PROVIDERS: Emergency Provider Emergency Medicine; PCP Family Medicine
DX: R51.9 Headache, unspecified (principal); D64.9 Anemia, unspecified; J45.909 Unspecified asthma, uncomplicated; K90.0 Celiac disease; K21.9 Gastro-esophageal reflux disease without esophagitis; F41.8 Other specified anxiety disorders; F17.290 Nicotine dependence, other tobacco product, uncomplicated; Z79.899 Other long term (current) drug therapy
CPT/HCPCS: 36415; 70450; 80053; 85025; 96361; 96374; 96375; 99284; J0780; J1200; J7030